=== PATIENT | male | born 1990 | race Asian ===

== ENCOUNTER 2018-12-11 04:03 | Emergency (ER) | payer OTHER ==
[~2018-12-11] VITALS: Ht 172.7 cm; Wt 68.0 kg
[2018-12-11 04:05] VITALS: BP_SYST 142
[2018-12-11 05:15] VITALS: BP_SYST 142
== END 2018-12-11 05:15 ==
LOC: SED 04:03
DX: Z04.1 Encounter for examination and observation following transport accident (principal); V89.2XXA Person injured in unspecified motor-vehicle accident, traffic, initial encounter; Y93.89 Activity, other specified; Y92.410 Unspecified street and highway as the place of occurrence of the external cause; Y99.8 Other external cause status
CPT/HCPCS: 99283